=== PATIENT | female | born 1975 | race Two or more races ===

== ENCOUNTER 2019-04-29 01:53 | Emergency (ER) | payer SELFPAY ==
[~2019-04-29] VITALS: Ht 152.4 cm; Wt 68.0 kg
[2019-04-29] MEDS ORDERED: ACETAMINOPHEN 500 MG TAB PO ONE (07:45)
[2019-04-29 08:44] VITALS: BP 123/101
== END 2019-04-29 08:48 | disposition home or self-care (01) ==
LOC: ER 01:58
DX: S16.1XXA Strain of muscle, fascia and tendon at neck level, initial encounter (principal); S70.11XA Contusion of right thigh, initial encounter; R51 Headache; W22.8XXA Striking against or struck by other objects, initial encounter; Y93.89 Activity, other specified; Y99.0 Civilian activity done for income or pay; Y92.69 Other specified industrial and construction area as the place of occurrence of the external cause
CPT/HCPCS: 70450; 72125